=== PATIENT | male | born 1960 | race African-American/Black ===

== ENCOUNTER 2020-03-15 10:29 | Emergency (ER) | payer MEDICAID, OTHER ==
[~2020-03-15] VITALS: Ht 177.8 cm; Wt 80.3 kg
[2020-03-15] MEDS ORDERED: IBUPROFEN 400 MG TABLET PO ONE (11:00)
[2020-03-15] MEDS ORDERED: IBUPROFEN 400 MG TABLET ONE ×2 (11:12→11:21)
--- NOTE | 2020-03-15 11:23 | NUR ---
PT WAS EVALUATED BY DR HERNANDEZ. [employer]ERS WERE CALLED BY PT. PT WAS EVALUATED BY [employer] OFF[employer]. PT WAS MEDICATED ACCORDING TO DR HERNANDEZ ORDERS. NO S/S OF ADVERSE REACTION. PT WAS D/C'd FROM [facility] ER. GAIT IS STABLE. NO S/S OF ACUTE DISTRESS AT THE TIME OF DISCHARGE FROM ER. NO DIZZINESS, NO SOB.
[2020-03-15 11:26] VITALS: BP 145/89
[2020-03-15] MEDS ORDERED: ACETAMINOPHEN ES 500 MG TABLET ONE (11:35)
== END 2020-03-15 12:03 | disposition home or self-care (01) ==
LOC: ER 10:29
DX: M54.5 Low back pain (principal); M25.562 Pain in left knee; Y08.89XA Assault by other specified means, initial encounter; Y92.89 Other specified places as the place of occurrence of the external cause; Y99.0 Civilian activity done for income or pay; E11.9 Type 2 diabetes mellitus without complications; Z79.4 Long term (current) use of insulin
CPT/HCPCS: A4663; A9150